=== PATIENT | male | born 1975 | race African-American/Black ===

== ENCOUNTER 2018-03-03 05:08 | Day surgery (SDC) | payer OTHER ==
[2018-03-01 13:15] VITALS: BMI 33.7
[2018-03-03 11:52] VITALS: TEMP 97.9
[2018-03-03 13:14] VITALS: BP 142/70; PULSE 78
== END 2018-03-03 13:22 | disposition home or self-care (01) ==
LOC: JASU-SURG 05:08
PROVIDERS: ATTEND Orthopaedic Surgery
PROC: 0LB60ZZ Excision of Left Lower Arm and Wrist Tendon, Open Approach (ICD-10-PCS; principal; 2018-03-03)
DX: M67.432 Ganglion, left wrist (principal)
CPT/HCPCS: 88304-TC; 94760

== ENCOUNTER 2021-08-16 17:19 | Emergency (ER) | payer OTHER ==
[2021-08-16 17:30] VITALS: BP 144/97; PULSE 87; TEMP 98; BMI 36.9
== END 2021-08-16 18:39 | disposition home or self-care (01) ==
LOC: JER 17:19 → JERFT 17:19
DX: L66.2 Folliculitis decalvans (principal)
CPT/HCPCS: 99283-25

== ENCOUNTER 2021-11-29 16:30 | Emergency (ER) | payer OTHER ==
[2021-11-29 16:35] VITALS: BP 145/85; PULSE 82; TEMP 97.8; BMI 34.0
== END 2021-11-29 17:32 | disposition home or self-care (01) ==
LOC: JERFT 16:30
DX: H10.32 Unspecified acute conjunctivitis, left eye (principal)
CPT/HCPCS: 99283-25

== ENCOUNTER 2021-12-20 18:31 | Emergency (ER) | payer OTHER ==
[2021-12-20 18:38] VITALS: BP 153/103; PULSE 90; TEMP 98.1; BMI 33.7
== END 2021-12-20 20:49 | disposition home or self-care (01) ==
LOC: JERFT 18:31
DX: S70.02XA Contusion of left hip, initial encounter (principal)
CPT/HCPCS: 99283-25

== ENCOUNTER 2023-05-04 16:28 | Emergency (ER) | payer OTHER ==
[2023-05-04 16:40] VITALS: BP 131/83; PULSE 68; RESP 16; TEMP 98.2; BMI 33.2
[2023-05-04] MEDS ORDERED: ACETAMINOPHEN 325 MG TABLET (FP) PO ONE (17:08)
[2023-05-04] MEDS ORDERED: CYCLOBENZAPRINE HCL 10 MG TABLET (FP) PO ONE (17:08)
[2023-05-04] MEDS ORDERED: ACETAMINOPHEN 325 MG TABLET (FP) ONE (17:12)
[2023-05-04] MEDS ORDERED: CYCLOBENZAPRINE HCL 10 MG TABLET (FP) ONE (17:12)
== END 2023-05-04 18:50 | disposition home or self-care (01) ==
LOC: JERFT 16:28
DX: M25.511 Pain in right shoulder (principal); X50.0XXA Overexertion from strenuous movement or load, initial encounter; Y93.E5 Activity, floor mopping and cleaning
CPT/HCPCS: 73030-TC-RT-FY; 99283-25

== ENCOUNTER 2024-10-07 04:16 | Day surgery (SDC) | payer OTHER ==
[2024-10-05 17:36] VITALS: BMI 33.2
[2024-10-07] MEDS ORDERED: ACETAMINOPHEN 500 MG TABLET (FP) PO PRN (08:47)
[2024-10-07] MEDS: LIDOCAINE 1% P/F 10 MG/ML VIAL INF ONE (09:30)
[2024-10-07] MEDS: BUPIVACAINE HCL/PF 0.75% 10 ML VIAL NR ONE ×2 (09:30)
[2024-10-07 10:46] VITALS: BP 130/90; PULSE 78; RESP 18; TEMP 98.3
== END 2024-10-07 10:10 | disposition home or self-care (01) ==
LOC: JASU-SURG 04:16
PROVIDERS: ATTEND Pain Medicine Pain Medicine
PROC: 3E0T33Z Introduction of Anti-inflammatory into Peripheral Nerves and Plexi, Percutaneous Approach (ICD-10-PCS; 2024-10-07)
PROC: 3E0T3BZ Introduction of Anesthetic Agent into Peripheral Nerves and Plexi, Percutaneous Approach (ICD-10-PCS; principal; 2024-10-07 08:45)
DX: M47.816 Spondylosis without myelopathy or radiculopathy, lumbar region (principal)
CPT/HCPCS: 76000-TC-FY

== ENCOUNTER 2024-11-11 04:29 | Day surgery (SDC) | payer OTHER ==
[2024-11-11] MEDS ORDERED: LIDOCAINE HCL/PF 1% SDV 5ML VIAL ONE (07:39)
[2024-11-11] MEDS ORDERED: BUPIVACAINE HCL/PF 0.75% 10 ML VIAL ONE (07:39)
[2024-11-11] MEDS ORDERED: ACETAMINOPHEN 500 MG TABLET (FP) PO PRN (08:29)
== END 2024-11-11 11:10 | disposition home or self-care (01) ==
LOC: JASU-SURG 04:29
PROVIDERS: ATTEND Pain Medicine Pain Medicine
DX: Z53.8 Procedure and treatment not carried out for other reasons (principal)

== ENCOUNTER 2024-11-18 03:59 | Day surgery (SDC) | payer OTHER ==
[2024-11-17 11:13] VITALS: BMI 25.2
[2024-11-18] MEDS ORDERED: ACETAMINOPHEN 500 MG TABLET (FP) PO PRN (09:16)
[2024-11-18] MEDS: BUPIVACAINE HCL/PF 0.75% 10 ML VIAL NR ONE ×2 (11:30)
[2024-11-18] MEDS: LIDOCAINE HCL 1% PRESERVATIVE FREE - 30ML VIAL IJ ONE ×2 (11:30)
[2024-11-18 11:57] VITALS: RESP 16
[2024-11-18 12:20] VITALS: BP 155/99; PULSE 64; TEMP 97.7
== END 2024-11-18 12:26 | disposition home or self-care (01) ==
LOC: JASU-SURG 03:59
PROVIDERS: ATTEND Pain Medicine Pain Medicine
PROC: 3E0T33Z Introduction of Anti-inflammatory into Peripheral Nerves and Plexi, Percutaneous Approach (ICD-10-PCS; 2024-11-18)
PROC: 3E0T3BZ Introduction of Anesthetic Agent into Peripheral Nerves and Plexi, Percutaneous Approach (ICD-10-PCS; principal; 2024-11-18 11:00)
DX: M47.816 Spondylosis without myelopathy or radiculopathy, lumbar region (principal)
CPT/HCPCS: 76000-TC-FY

== ENCOUNTER 2025-01-05 07:05 | Day surgery (SDC) | payer OTHER ==
[2024-12-27 13:25] VITALS: BMI 25.2
[2025-01-05] MEDS ORDERED: LIDOCAINE HCL/PF 1% SDV 5ML VIAL ONE (13:45)
[2025-01-05] MEDS ORDERED: DEXAMETHASONE SOD PHOSPHATE 10 MG/1 ML VIAL ONE (13:46)
[2025-01-05 16:35] VITALS: RESP 18
[2025-01-05 17:11] VITALS: BP 128/89; PULSE 69; TEMP 97.8
[2025-01-05] MEDS ORDERED: ACETAMINOPHEN 500 MG TABLET (FP) PO PRN (17:21)
== END 2025-01-05 17:25 | disposition home or self-care (01) ==
LOC: JASU-SURG 07:05
PROVIDERS: ATTEND Pain Medicine Pain Medicine
PROC: X05133A Destruction of Renal Sympathetic Nerve(s) using Radiofrequency Ablation, Percutaneous Approach, New Technology Group 10 (ICD-10-PCS; principal; 2025-01-05 16:26)
DX: M47.816 Spondylosis without myelopathy or radiculopathy, lumbar region (principal)
CPT/HCPCS: 76000-TC-FY; J1100

== ENCOUNTER 2025-02-10 06:18 | Day surgery (SDC) | payer OTHER ==
[2025-02-06 15:47] VITALS: BMI 25.2
[2025-02-10] MEDS: LIDOCAINE HCL 1% PRESERVATIVE FREE - 30ML VIAL IJ ONE ×2 (09:26)
[2025-02-10] MEDS: DEXAMETHASONE SOD PHOSPHATE 10 MG/1 ML VIAL IVPUSH ONE ×2 (09:26)
[2025-02-10] MEDS: LIDOCAINE HCL/PF 2% SDV 5ML VIAL INF ONE ×2 (09:26)
[2025-02-10] MEDS: BUPIVACAINE HCL/PF 0.75% 10 ML VIAL NR ONE ×2 (09:26)
[2025-02-10 09:57] VITALS: BP 139/95; PULSE 76; RESP 16; TEMP 97.8
[2025-02-10] MEDS ORDERED: ACETAMINOPHEN 500 MG TABLET (FP) PO PRN (20:59)
== END 2025-02-10 10:20 | disposition home or self-care (01) ==
LOC: JASU-SURG 06:18
PROVIDERS: ATTEND Pain Medicine Pain Medicine
PROC: 015B3ZZ Destruction of Lumbar Nerve, Percutaneous Approach (ICD-10-PCS; principal; 2025-02-10 08:45)
DX: M47.816 Spondylosis without myelopathy or radiculopathy, lumbar region (principal)
CPT/HCPCS: 76000-TC-FY; J1100